=== PATIENT | male | born 1995 | race Caucasian/White ===

== ENCOUNTER 2019-06-13 19:50 | Emergency (ER) | payer OTHER ==
[~2019-06-13] VITALS: Ht 182.9 cm; Wt 68.0 kg
[2019-06-13] MEDS ORDERED: PROMETHAZINE-C473 ML PO (20:45)
[2019-06-13] MEDS ORDERED: AMOXICILLIN 50500 M1 PO (20:45)
[2019-06-13 20:56] VITALS: BP 112/70
== END 2019-06-13 20:56 | disposition home or self-care (01) ==
LOC: M.ERS 19:50
DX: J06.9 Acute upper respiratory infection, unspecified (principal); F17.210 Nicotine dependence, cigarettes, uncomplicated

== ENCOUNTER 2020-01-23 10:45 | Emergency (ER) | payer OTHER ==
[~2020-01-23] VITALS: Ht 185.4 cm; Wt 63.5 kg
[~2020-01-23 10:45] MED LIST: AMOXICILLIN 50500 M1 PO; PROMETHAZINE-C473 ML PO
[2020-01-23] MEDS ORDERED: AMOXICILLIN 50500 MG PO ×2 (10:50)
[2020-01-23 11:32] LABS: ABSOLUTE EOSINOPHILS 0.1 thou/uL (0.0-0.7); ABSOLUTE LYMPHOCYTES 1.6 thou/uL (0.8-5.3); ABSOLUTE MONOCYTES 0.5 thou/uL (0.0-1.2); ABSOLUTE NEUTROPHILS 3.1 thou/uL (1.6-8.1); BASOPHILS 0.5 %; EOSINOPHILS 1.7 %; HEMATOCRIT 42.8 % (42.0-52.0); HEMOGLOBIN 15.1 gm/dL (14.0-18.0); LYMPHOCYTES 30.4 %; MCH 33.9 pg (26.0-34.0); MCHC 35.3 g/dL (28.0-37.0); MCV 96.1 fL (80.0-100.0); MONOCYTES 9.1 %; MPV 9.2 fl. (7.2-11.1); NUCLEATED RBCS 0 /100WBC; PLATELET COUNT* 204 thou/uL (150-400); POLYS 58.3 %; RBC 4.46 mil/uL (4.50-6.00); RDW-CV 12.4 % (10.5-14.5); WBC 5.3 thou/uL (4.0-11.0)
[2020-01-23 11:44] LABS: CALCIUM 8.7 mg/dL (8.5-10.1); CREATININE 1.1 mg/dL (0.6-1.3)
[2020-01-23 11:48] LABS: ALBUMIN 4.5 g/dL (3.4-5.0); MAGNESIUM 2.3 mg/dL (1.8-2.4); TOTAL BILIRUBIN 0.7 mg/dL (<0.1-1.0); TOTAL PROTEIN 7.7 g/dL (6.4-8.2)
[2020-01-23] MEDS ORDERED: IBUPROFEN 800800 M1 PO (12:11)
[2020-01-23] MEDS ORDERED: FLEXERIL PO (12:11)
[2020-01-23 12:26] VITALS: BP 107/58
--- NOTE | 2020-01-26 16:07 | EKG ---
[place] [address] ELECTROCARDIOGRAM REPORT Name: VIOLETA BRUSH JR Room: [facility]#: [id number] Admission: 01/23/20 Attend Phys: Discharge: 01/23/20 Date of : 89 Date of Service: 01/23/20 1049 Report #: [id number] THIS REPORT FOR: //name// [facility] ED Test Date: 2020-01-23 Test Time: 10:49:06 Pat Name: VIOLETA BRUSH Department: Room: Gender: Manager Clinical Services: AZEB : 1995 Requested By: Álvaro Potter Order Number: [id number] MD: Mil Matson Measurements Intervals [place] Rate: 71 P: 69 HI: 167 QRS: 89 QRSD: 101 T: 37 QT: 357 QTc: 388 Interpretive Statements Sinus rhythm ST elev, probable normal early repol pattern No previous ECG available for comparison Electronically Signed On 01-26-2020 16:05:13 CDT by Mil Matson [email or web address] <ELECTRONICALLY SIGNED> By: Mil Matson MD, [facility] 01/26/20 1605 1049 1049 Mil Matson MD, FAC /EPI
== END 2020-01-23 12:26 | disposition home or self-care (01) ==
LOC: M.ERS 10:45
PROVIDERS: Emergency Medicine Emergency Medical Services
DX: M94.0 Chondrocostal junction syndrome [Tietze] (principal); J45.909 Unspecified asthma, uncomplicated; F17.210 Nicotine dependence, cigarettes, uncomplicated

== ENCOUNTER 2020-02-28 14:47 | Emergency (ER) | payer OTHER ==
[~2020-02-28] VITALS: Ht 185.4 cm; Wt 63.5 kg
[~2020-02-28 14:47] MED LIST changes: +AMOXICILLIN 50500 MG PO; +FLEXERIL PO; +IBUPROFEN 800800 M1 PO
[2020-02-28 14:55] VITALS: BP 115/71
[2020-02-28] MEDS ORDERED: NORCO 5-325 TA1 EAC1 PO (15:08)
[2020-02-28] MEDS ORDERED: IBUPROFEN 800800 M1 PO (15:08)
[2020-02-28] MEDS ORDERED: FLEXERIL PO (15:08)
== END 2020-02-28 15:15 | disposition home or self-care (01) ==
LOC: M.ERS 14:47
DX: M54.6 Pain in thoracic spine (principal); M54.5 Low back pain; F17.210 Nicotine dependence, cigarettes, uncomplicated; F12.10 Cannabis abuse, uncomplicated; J45.909 Unspecified asthma, uncomplicated